=== PATIENT | male | born 1960 | race African-American/Black ===

== ENCOUNTER 2020-09-22 06:16 | Emergency (ER) | payer SELFPAY ==
--- NOTE | ~2020-09-22 | CT_ITS ---
EXAMINATION: CTA brain carotid EXAM DATE: 09/22/2020 08:14 INDICATION: Sudden onset blurry vision right eye. Right eye blurry vision, sudden onset. Uncontrolled diabetes. TECHNIQUE: Noncontrast head CT. Spiral CTA of the carotid arteries was performed with intravenous i njection 100 cc of Omnipaque 350. Axial, coronal, sagittal reformatted images reviewed. Additional r eformatted images created on dedicated 3-D workstation. NASCET comparable standard used to assess th e degree of arterial stenosis. Spiral CT angiogram cerebral arteries performed with the same intrave nous injection of contrast. Source images of the brain CTA transferred to dedicated workstation for 3 -D rotational image creation. Coronal, sagittal maximum intensity pixel images also reviewed. The d ose-length product (DLP) for this examination was 1545.76 mGy-cm. The exposure was tailored accordi ng to patient size, and iterative reconstruction (ASIR) was used as additional dose reduction techniq ue. There is no prior study for comparison. FINDINGS: Minimal bilateral carotid bulb arterial sclerosis, 0% stenosis bilaterally. There is no ca rotid or vertebral basilar arterial dissection or fibromuscular dysplasia. There are no cerebral bev ry aneurysms. There is symmetric cerebral artery arborization. The sagittal, transverse and sigmoid s inuses enhance normally, no venous sinus thrombosis. Internal cerebral veins also enhance normally. The right superior ophthalmic vein measures 4.2 mm, the left measuring 3.8 mm maximal dimensions. The se are considered mildly enlarged which can be an indirect sign of a carotid-cavernous fistula, but t here is still density difference between the amount of enhancement in the parasellar portions of the carotid arteries and the cavernous sinuses, no direct evidence of fistula. There is no acute intraparenchymal hemorrhage. No evidence of intraparenchymal brain mass lesion. N o evidence of acute infarction. There is no mass effect or midline shift. There is no obstructive hyd rocephalus suspected. There are no extra-axial collections. Incidental Findings: Moderate cervical spondylosis. Small soft tissue density in each parotid, on the right up to 5 mm with well-defined margin, on the left similar in size but with less well-defined ma rgin; six-month follow-up CT with contrast recommended. IMPRESSION: 1. No acute carotid or intracranial findings. 2. Bilateral carotid 0% stenosis. 3. Mildly dilated superior ophthalmic veins without direct evidence of CC fistula. 4. Small incidental parotid soft tissue densities; differential diagnosis including intraparotid lym ph nodes, or possibly primary parotid neoplasm on the left; recommend 6 month follow-up CT neck with contrast. I am at extension [phone]. Reviewed, dictated and finalized at location B. IMPRESSION: 1. No acute carotid or intracranial findings. 2. Bilateral carotid 0% stenosis. 3. Mildly dilated superior ophthalmic veins without direct evidence of CC fist av. 4. Small incidental parotid soft tissue densities; differential diagnosis incl uding intraparotid lymph nodes, or possibly primary parotid neoplasm on the lef t; recommend 6 month follow-up CT neck with contrast. I am at extension [phone].
[2020-09-22 06:17] VITALS: BP 166/81; PULSE 93; RESP 24; TEMP 36.4; O2SAT 98
[2020-09-22 06:28] LABS: Glucose Point of Care 134 mg/dl (65-105)
--- NOTE | 2020-09-22 06:29 | ED.GENADULT ---
HPI - General Adult General Chief complaint: Recheck/Abnormal Lab/Rx <Desean Hubbard MD - Last Filed: 09/22/20 06:32> Stated complaint: low blood sugar <Desean Hubbard MD - Last Filed: 09/22/20 06:32> Time Seen by Provider: 09/22/20 06:24 <Desean Hubbard MD - Last Filed: 09/22/20 06:32> History of Present Illness HPI narrative: Patient 60-year-old gentleman who presents emerged part with chief complaint of hypoglycemia. Patient has history of insulin-dependent diabetes reports that he is not been the most compliant and taking his blood sugars due to lack of testing strips. Patient states that today he was found wandering the streets and had a blood sugar of 30. Patient was treated with dextrose by EMS and is currently back to normal patient states that he does not want a lot of testing done as he does not have insurance coverage. Patient denies chest pain denies shortness of breath denies abdominal pain nausea vomiting. <Desean Hubbard MD - Last Filed: 09/22/20 06:32> Related Data Allergies/adverse reactions: Allergies Allergy/AdvReac Type Severity Reaction Status Date / Time No Known Allergies Allergy Verified 09/22/20 09:40 <Desean Hubbard MD - Last Filed: 09/22/20 06:32> Review of Systems Review of Systems: Narrative: A 10 system review of systems was completed on the patient and is negative except for what is stated in the HPI. Nursing and ancillary documentation was reviewed. <Desaen Hubbard MD - Last Filed: 09/22/20 06:32> PMFSH Comments Past medical history significant insulin-dependent diabetes Social history the patient denies illicit drug use <Desean Hubbard MD - Last Filed: 09/22/20 06:32> Exam Narrative: Exam Narrative: GENERAL: Well-appearing, well-nourished, and in no acute distress. HEAD: Normocephalic, atraumatic. EYES: PERRLA and EOMI. ENT: Nares clear, no rhinorrhea or epistaxis. Mucous membranes moist. NECK: Supple. CHEST: Clear to auscultation. No respiratory distress. HEART: Regular rate and rhythm. No murmur heard. Normal peripheral pulses. ABDOMEN: Soft, nontender, nondistended, normal active bowel sounds. EXTREMITIES: Normal range of motion. No edema. SKIN: Warm, dry, no rash. NEURO: No focal deficits. Alert and oriented x3. PSYCH: Normal mood and affect. <Desean Hubbard MD - Last Filed: 09/22/20 06:32> Course Vital Signs Vital signs: Vital Signs Temperature 36.4 C L 09/22/20 06:17 Pulse Rate 93 09/22/20 06:17 Respiratory Rate 24 H 09/22/20 06:17 Blood Pressure 166/81 H 09/22/20 06:17 Pulse Oximetry 98 09/22/20 06:17 Temperature 36.4 C L 09/22/20 06:17 Pulse Rate 94 09/22/20 07:16 Respiratory Rate 17 09/22/20 07:16 Blood Pressure 154/78 H 09/22/20 07:16 Pulse Oximetry 95 09/22/20 07:16 <Desean Hubbard MD - Last Filed: 09/22/20 06:32> Vital Signs Temperature 36.4 C L 09/22/20 06:17 Pulse Rate 93 09/22/20 06:17 Respiratory Rate 24 H 09/22/20 06:17 Blood Pressure 166/81 H 09/22/20 06:17 Pulse Oximetry 98 09/22/20 06:17 Temperature 36.4 C L 09/22/20 06:17 Pulse Rate 94 09/22/20 07:16 Respiratory Rate 17 09/22/20 07:16 Blood Pressure 154/78 H 09/22/20 07:16 Pulse Oximetry 95 09/22/20 07:16 <Kathya Rosas MD - Last Filed: 09/22/20 10:22> Medical Decision Making Vital Signs Vital Signs: Vital Signs Temperature 36.4 C L 09/22/20 06:17 Pulse Rate 93 09/22/20 06:17 Respiratory Rate 24 H 09/22/20 06:17 Blood Pressure 166/81 H 09/22/20 06:17 Pulse Oximetry 98 09/22/20 06:17 Temperature 36.4 C L 09/22/20 06:17 Pulse Rate 94 09/22/20 07:16 Respiratory Rate 17 09/22/20 07:16 Blood Pressure 154/78 H 09/22/20 07:16 Pulse Oximetry 95 09/22/20 07:16 <Desean Hubbard MD - Last Filed: 09/22/20 06:32> Vital Signs Temper
--- NOTE | 2020-09-22 06:29 | PC.NURSE ---
Pt presents to ED via EMS. Per EMS, pt was found wandering by kristian. An employee at [facility] saw pt wandering and behaving strange and was eventually able to get him out of the ditch. Pt noted to be a diabetic who checks his sugar only once every 3 weeks because he can't afford the test strips and states he still administers insulin daily. EMS states glucose was 45 upon their arrival and was 139 after EMS administered 1 oral glucose and x1 amp of d10. Pt noted to be alert and oriented x4 and in no obvious distress at this time. Vitals are stable and glucose upon arrival to ED is 134 . Pt states he only remembers going to work on Monday and does not remember anything after work on Monday. Pt reluctant to share personal information. States he lost his work phone and personal phone and does not know how to get in contact with family. EDMD presented to bedside. Call button and personal items within reach. Pt advised to press call button for assistance.
--- NOTE | 2020-09-22 06:31 | PC.NURSE ---
Pt states I should have stayed over there with my car. Y'all are holding me like I'm a hostage . Pt advised that we are not holding him hostage and that we are simply trying to ensure that he is safe and well enough to go home.
--- NOTE | 2020-09-22 06:32 | PC.NURSE ---
Pt denies all pain and discomfort at this time.
[2020-09-22 06:33] VITALS: RESP 19
[2020-09-22 06:52] LABS: Basophils Percent Auto 0.1 % (0.2-1.2); Eosinophils Absolute Auto 0.1 K/mm3 (0-0.3); Eosinophils Percent Auto 0.7 % (0-4.4); Hematocrit 44.9 % (42.0-52.0); Hemoglobin 13.7 g/dL (14.0-18.0); Immature Granulocyte Absolute 0.02 K/mm3 (0.00-0.031); Immature Granulocyte Percent A 0.3 % (0-0.5); Lymphocytes Absolute Auto 0.94 K/mm3 (0.9-3.2); Lymphocytes Percent Auto 13.1 % (18.3-44.2); Mean Corpuscular HGB Conc 30.5 g/dl (32-36); Mean Corpuscular Hemoglobin 26.1 pg (26-34); Mean Corpuscular Volume 85.5 fl (80-100); Monocytes Absolute Auto 0.4 K/mm3 (0.1-0.6); Neutrophils Absolute Auto 5.8 K/mm3 (1.3-6.7); Neutrophils Percent Auto 80.8 % (45.5-73.1); Platelet Count Result 259 k/mm3 (150-375); Red Blood Count 5.25 M/mm3 (4.6-6.20); Red Cell Distribution Width 12.1 % (11.5-14.5); White Blood Count 7.2 K/mm3 (4.5-10.0)
[2020-09-22 07:01] LABS: Anion Gap 8 mmol/L (8-16); Blood Urea Nitrogen 19 mg/dL (9-20); Calcium 9.2 mg/dL (8.4-10.2); Carbon Dioxide 28 mmol/L (22-30); Chloride 107 mmol/L (98-107); Estimated CRCL calculation 37 ml/min; Estimated Glomerular Filt Rate 39; Glucose 124 mg/dL (75-110); Potassium 4.7 mmol/L (3.4-5.0); Sodium 143 mmol/L (137-145)
[2020-09-22 07:16] VITALS: BP 154/78; PULSE 94; RESP 17; O2SAT 95
--- NOTE | 2020-09-22 07:31 | PC.NURSE ---
ed md informd that pt c/o new onset blurred vision rt eye
[2020-09-22 07:32] LABS: Glucose Point of Care 158 mg/dl (65-105)
[2020-09-22 10:22] VITALS: BP 158/88; PULSE 88; RESP 20; O2SAT 98
== END 2020-09-22 10:25 | disposition home or self-care (01) ==
PROVIDERS: Emergency Medicine; Emergency Provider Emergency Medicine
DX: E11.649 Type 2 diabetes mellitus with hypoglycemia without coma (principal); H53.8 Other visual disturbances
CPT/HCPCS: 36415; 70496; 70498; 80048; 82948; 85025; 99284; A9270; Q9967